=== PATIENT | female | born 2000 | race Two or more races ===

== ENCOUNTER → 2024-07-28 | Emergency (ER) | payer OTHER ==
[~2024-07-28] VITALS: Ht 160 cm; Wt 56.7 kg
[~2024-07-28] MED LIST: CEFTRIAXONE SODIUM 1,000 MG VIAL IM STA; CEFTRIAXONE SODIUM 1,000 MG VIAL ONE; TETANUS & DIPHTHERIA TOX,ADULT 0.5 ML VIAL IM STA; TETANUS DIPHTHERIA TOX. ADSOR 5 ML VIAL IM ONE
== END | disposition home or self-care (01) ==
LOC: ER 17:16
DX: S80.871A Other superficial bite, right lower leg, initial encounter (principal); S90.872A Other superficial bite of left foot, initial encounter; W54.0XXA Bitten by dog, initial encounter; Y93.89 Activity, other specified; Y92.89 Other specified places as the place of occurrence of the external cause; Y99.9 Unspecified external cause status